=== PATIENT | male | born 1990 | race Hispanic/Latino ===

== ENCOUNTER 2024-04-01 15:58 | Emergency (ER) | payer SELFPAY ==
[~2024-04-01] VITALS: Ht 172.7 cm; Wt 118.0 kg
[2024-04-01 16:02] VITALS: BP 159/90; TEMP 99.4; O2SAT 98
[2024-04-01] MEDS ORDERED: IBUP-1022 PO (18:59)
[2024-04-01] MEDS ORDERED: AMOX500C PO (18:59)
[2024-04-01] MEDS: AMOXICILLIN 500 MG CAP PO ONE (19:01)
[2024-04-01] MEDS: KETOROLAC 60MG 2ML VIAL IM ONE (19:01)
== END 2024-04-01 19:15 | disposition home or self-care (01) ==
LOC: M ED 15:58
DX: K04.7 Periapical abscess without sinus (principal); Z79.1 Long term (current) use of non-steroidal anti-inflammatories (NSAID); Z79.2 Long term (current) use of antibiotics
CPT/HCPCS: 96372; 99283; J1885

== ENCOUNTER 2024-05-28 03:35 | Emergency (ER) | payer SELFPAY ==
[~2024-05-28] VITALS: Ht 172.7 cm; Wt 114.0 kg
[~2024-05-28 03:35] MED LIST: AMOX500C PO; IBUP-1022 PO
[2024-05-28] MEDS: AUGMENTIN 875 MG TAB PO ONE (07:28)
[2024-05-28] MEDS: KETOROLAC 60MG 2ML VIAL IM ONE (07:30)
[2024-05-28 07:33] VITALS: BP 124/80; TEMP 97.5; O2SAT 100
[2024-05-29] MEDS ORDERED: AMOX875T2 PO (12:11)
== END 2024-05-28 07:38 | disposition home or self-care (01) ==
LOC: M ED 03:35
DX: K04.7 Periapical abscess without sinus (principal); S02.5XXA Fracture of tooth (traumatic), initial encounter for closed fracture; Y92.019 Unspecified place in single-family (private) house as the place of occurrence of the external cause; Y93.9 Activity, unspecified; Y99.9 Unspecified external cause status; F10.10 Alcohol abuse, uncomplicated; Z79.1 Long term (current) use of non-steroidal anti-inflammatories (NSAID); Z79.2 Long term (current) use of antibiotics
CPT/HCPCS: 96372; 99283; J1885

== ENCOUNTER 2024-10-15 05:28 | Emergency (ER) | payer SELFPAY ==
[~2024-10-15] VITALS: Ht 172.7 cm; Wt 114.7 kg
[~2024-10-15 05:28] MED LIST changes: +AMOX875T2 PO
[2024-10-15] MEDS ORDERED: AMOX875T2 PO (11:15)
[2024-10-15] MEDS: AUGMENTIN 875 MG TAB PO ONE (11:20)
[2024-10-15 11:24] VITALS: BP 135/81; TEMP 98.1; O2SAT 100
== END 2024-10-15 11:23 | disposition home or self-care (01) ==
LOC: M ED 05:28
DX: K02.9 Dental caries, unspecified (principal); Z79.2 Long term (current) use of antibiotics